=== PATIENT | female | born 1965 | race Caucasian/White ===

== ENCOUNTER 2018-09-03 17:18 | Emergency (ER) | payer OTHER ==
[~2018-09-03] VITALS: Ht 152.4 cm; Wt 57.8 kg
[2018-09-03 17:45] VITALS: BP 142/80
--- NOTE | 2018-09-03 18:25 | NUR ---
PATIENT AMBULATED TO BED 8
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
--- NOTE | 2018-09-03 19:13 | NUR ---
REPORT GIVEN TO DREW NORTH, TRANSFER OF CARE AT THIS TIME
[2018-09-03] MEDS ORDERED: IBUPROFEN 800 MG TAB PO ONE (19:50)
[2018-09-03 20:57] VITALS: BP 129/75
== END 2018-09-03 20:57 | disposition home or self-care (01) ==
LOC: MED 17:18
DX: S16.1XXA Strain of muscle, fascia and tendon at neck level, initial encounter (principal); R51 Headache; V89.2XXA Person injured in unspecified motor-vehicle accident, traffic, initial encounter; Y93.89 Activity, other specified; Y92.89 Other specified places as the place of occurrence of the external cause; Y99.8 Other external cause status
CPT/HCPCS: 99282

== ENCOUNTER 2021-07-12 08:58 | Emergency (ER) | payer SELFPAY ==
[~2021-07-12] VITALS: Ht 154.9 cm; Wt 58.1 kg
[2021-07-12 08:59] VITALS: BP 142/60
--- NOTE | 2021-07-12 09:04 | NUR ---
Patient reports "I feel a lot better now. My ride is going to pick me up." Patient reports she will be going home and does not want to be checked out. Dr. Hoover made aware.
== END 2021-07-12 09:05 | disposition left against medical advice (07) ==
LOC: MED 08:58
DX: R42 Dizziness and giddiness (principal); Z53.21 Procedure and treatment not carried out due to patient leaving prior to being seen by health care provider

== ENCOUNTER 2022-01-30 19:03 | Emergency (ER) | payer SELFPAY ==
[~2022-01-30] VITALS: Ht 154.9 cm; Wt 56.4 kg
[2022-01-30 19:25] VITALS: BP 173/100
[2022-01-30 20:55] LABS: BASOPHILS # (AUTO) 0.1 K/uL (0.00-0.22); BASOPHILS % (AUTO) 1.1 % (0.0-2.0); EOSINOPHILS # (AUTO) 0.1 K/uL (0-0.4); EOSINOPHILS % (AUTO) 1.2 % (0.0-4.0); HEMATOCRIT 40.4 % (36-48); HEMOGLOBIN 13.3 g/dL (12.0-16.0); LYMPHOCYTES # (AUTO) 2.4 K/uL (2.5-16.5); LYMPHOCYTES % (AUTO) 39.2 % (20.5-51.1); MEAN CORPUSCULAR HEMOGLOBIN 29 pg (27-31); MEAN CORPUSCULAR HGB CONC 33 g/dL (33-37); MEAN CORPUSCULAR VOLUME 89.2 fL (80-94); MONOCYTES # (AUTO) 0.6 K/uL (0.8-1.0); MONOCYTES % (AUTO) 9.3 % (1.7-9.3); NEUTROPHILS % (AUTO) 49.2 % (42.2-75.2); PLATELET COUNT (AUTO) 276 K/uL (140-450); RED BLOOD CELL COUNT(AUTO) 4.53 MIL/uL (4.20-5.40); RED CELL DISTRIBUTION WIDTH 13.6 % (11.6-13.7); WHITE BLOOD COUNT (AUTO) 6.1 K/uL (4.8-10.8)
[2022-01-30 21:20] LABS: ANION GAP 12.1 (8-16); ASPARTATE AMINOTRANSFERASE 24 U/L (15-37); CHLORIDE 105 mmol/L (98-107); GFR ARICAN-AMERICAN 73 mL/min (>90); GLUCOSE 113 mg/dL (74-106); POTASSIUM 4.1 mmol/L (3.5-5.1); SODIUM SERUM 139 mmol/L (136-145); TOTAL BILIRUBIN 0.3 mg/dL (0.0-1.0); UREA NITROGEN, BLOOD 13 mg/dL (7-18)
--- NOTE | 2022-01-30 23:10 | NUR ---
PT CALLED, NO ANS.
--- NOTE | 2022-01-30 23:15 | NUR ---
PT CALLED, NO ANS.
--- NOTE | 2022-01-30 23:18 | NUR ---
PT CALLED, NO ANS.
== END 2022-01-30 23:10 | disposition left against medical advice (07) ==
LOC: MED 19:03
DX: I10 Essential (primary) hypertension (principal); R42 Dizziness and giddiness; Z53.21 Procedure and treatment not carried out due to patient leaving prior to being seen by health care provider
CPT/HCPCS: 36415; 80053; 84484; 85025

== ENCOUNTER 2022-12-22 23:20 | Emergency (ER) | payer BC ==
[~2022-12-22] VITALS: Ht 152.4 cm; Wt 57.2 kg
[2022-12-22 23:38] VITALS: BP_SYST 146; BP_SYST 179; BP_DIAS 81; PULSE 73; RESP 17; TEMP 98.1; O2SAT 98
--- NOTE | 2022-12-22 23:46 | NUR ---
TO LOBBY A/W BED AMBULATORY
--- NOTE | 2022-12-23 00:07 | NUR ---
PT AMBULATED TO BED #2
--- NOTE | 2022-12-23 01:18 | NUR ---
Dr. Storm examining patient.
[2022-12-23] MEDS ORDERED: IBUPROFEN 600 MG TAB PO ONE (01:25)
[2022-12-23] MEDS ORDERED: ACETAMINOPHEN EXTRA STRENGTH 500 MG TAB PO ONE (01:25)
[2022-12-23] MEDS ORDERED: amLODIPine 5 MG TAB PO ONE (01:25)
[2022-12-23] MEDS ORDERED: AMLO10TA PO (01:26)
[2022-12-23] MEDS ORDERED: ACET-10509 PO (01:27)
--- NOTE | 2022-12-23 01:55 | NUR ---
PT RESTING ON BED. NOT IN DISTRESS. ON MONITOR. WITH NO COMPLAIN OF PAIN.
[2022-12-23 02:00] VITALS: BP 170/80; PULSE 70; RESP 15; TEMP 98.1; O2SAT 96
--- NOTE | 2022-12-23 02:00 | NUR ---
Patient discharged with v/s stable. Written and verbal after care instructions given and explained. Patient alert, oriented and verbalized understanding of instructions. Ambulatory with steady gait. All questions addressed prior to discharge. ID band removed. Patient advised to follow up with PMD. Rx given TO PT. Patient educated on indication of medication including possible reaction and side effects. Opportunity to ask questions provided and answered.
== END 2022-12-23 02:00 | disposition home or self-care (01) ==
LOC: MED 23:20
DX: I10 Essential (primary) hypertension (principal); R51.9 Headache, unspecified; Z79.899 Other long term (current) drug therapy
CPT/HCPCS: 99284